=== PATIENT | female | born 2000 | race Caucasian/White ===

== ENCOUNTER 2023-08-16 09:18 | Day surgery (SDC) | payer BC ==
[2023-08-16] VITALS (7 sets, daily range): BP systolic 108–129; BP diastolic 62–81; PULSE 75–100; TEMP 98–98.8
[~2023-08-16] VITALS: Ht 170.2 cm; Wt 62.5 kg
[~2023-08-16 09:18] MED LIST: LR 1,000 ML IV SCH; Ondansetron 4 MG/2 ML VIAL IV PRN
--- NOTE | 2023-08-16 10:59 | NUR ---
Pt arrived with , bowels are WNL; VSS and RR regular and unlabored; consents reviewed and signed x3; reviewed history/meds/allergies/pharm; IV to RAC and LR hanging, to await procedure.
--- NOTE | 2023-08-16 12:05 | NUR ---
PATIENT AMBULATED TO CHAIR WITH STEADY GAIT, ASSIST OF 2. ALERT AND AWAKE. DENIES PAIN, NAUSEA AND SHORTNESS OF BREATH. BREATHING REGULAR AND UNLABORED ON ROOM AIR. SKIN WARM AND DRY. IV IN PLACE. NURSE HANDOFF COMPLETED IN ROOM. SEE CHART FOR VITAL SIGNS. PATIENT HAD WATER AND A MUFFIN. BOTH FOOD AND DRINK TOLERATED WELL. NO DYSPHAGIA. CALL LIGHT IN REACH. SPOUSE, JARED, PRESENT IN ROOM.
--- NOTE | 2023-08-16 12:43 | NUR ---
1225: DR. BEARD MET WITH PATIENT AND SPOUSE IN ROOM TO DISCUSS PROCEDURE. DISCHARGE TEACHING COMPLETED WITH PRINTED EDUCATION AND INSTRUCTIONS SENT HOME WITH PATIENT. PATIENT VERBALIZED UNDERSTANDING OF TEACHING. 1238: IV REMOVED. GAUZE AND COBAN PLACED OVER SITE. 1243: PATIENT DISCHARGED HOME WITH [facility] TRANSPORT.
== END 2023-08-16 12:43 | disposition home or self-care (01) ==
LOC: SDCO 09:18
DX: K29.51 Unspecified chronic gastritis with bleeding (principal); K59.00 Constipation, unspecified; K92.1 Melena; G89.29 Other chronic pain; R63.4 Abnormal weight loss; R10.2 Pelvic and perineal pain
CPT/HCPCS: J2704; J7120

== ENCOUNTER 2024-01-09 21:35 | Emergency (ER) | payer BC ==
[~2024-01-09] VITALS: Ht 167.6 cm; Wt 63.6 kg
[2024-01-09 21:50] VITALS: TEMP 98.9
[2024-01-09 22:52] VITALS: BP 126/80; PULSE 101
== END 2024-01-09 22:52 | disposition home or self-care (01) ==
LOC: COL.ER 21:35
DX: S40.861A Insect bite (nonvenomous) of right upper arm, initial encounter (principal); L08.9 Local infection of the skin and subcutaneous tissue, unspecified; W57.XXXA Bitten or stung by nonvenomous insect and other nonvenomous arthropods, initial encounter